=== PATIENT | female | born 1985 | race Caucasian/White ===

== ENCOUNTER → 2018-07-16 15:58 | Outpatient (CLI) | payer OTHER, MEDICAID, SELFPAY ==
[2018-07-16 16:37] LABS: Add Manual Diff / Slide Review NO; Basophils Percent Auto 0.5 % (0-2); Eosinophils Percent Auto 1.4 % (2-4); Hematocrit 40.4 % (36-46); Hemoglobin 13.6 g/dL (12.0-16.0); Lymphocytes Percent Auto 20.7 % (25-40); Mean Corpuscular HGB Conc 33.8 % (30-36); Mean Corpuscular Hemoglobin 31.7 PG (26-34); Mean Corpuscular Volume 93.9 fL (80-100); Monocytes Percent Auto 7.2 % (3-14); Neutrophils Absolute Auto 8900 /uL (1500-7000); Neutrophils Percent Auto 70.2 % (50-75); Platelet Count 230 X10^3/uL (150-400); Red Cell Distribution Width 12.6 % (11.6-14.8); White Blood Cell Count 12.7 X10^3/uL (4.5-11.0)
== END ==
PROVIDERS: Visit Provider Specialist
DX: Z01.818 Encounter for other preprocedural examination (principal)
CPT/HCPCS: 36415; 85025

== ENCOUNTER → 2018-08-20 12:44 | Outpatient (CLI) | payer OTHER, MEDICAID, SELFPAY ==
--- NOTE | 2018-08-20 12:51 | DI.US.S_ITS ---
PROCEDURE: US PELVIC COMPLETE INDICATIONS: PAIN; DISPARUNIA TECHNIQUE: Real-time scanning was performed of the pelvic organs, with image documentation. Additional endovaginal scanning was necessary due to incomplete visualization of the adnexal and endometrial structures by transabdominal scanning. COMPARISON: None. FINDINGS: Transabdominal scanning: Limited scanning through the kidneys shows no hydronephrosis. No pathologic free abdominal or pelvic fluid. Endovaginal scanning: Uterus: Uterus is normal in size at 4.7 x 5.8 x 8.5 cm. the uterus is anteverted The endometrium measures 4.3 mm in combined thickness. Note is made of a myometrial 0.8 x 1.2 x 1.4 cm cyst, subserosal, seen at the superior fundal portion of the anteverted myometrium just to the left of midline. Ovaries: The right ovary measures 3.0 x 1.8 x 2.7 cm and the left measures 2.1 x 2.5 x 3.8 cm IMPRESSION: No endometrial mass is identified. No ovarian cystic or solid mass is found. Anteverted uterus. A subserosal myometrial simple appearing cyst is incidentally noted measuring up to 1.4 cm in maximal dimension (superior fundal portion of the myometrium, just to the left of midline). Dictated by: Christoph Hightower M.D. on 08/20/2018 at 14:51 Approved by: Christoph Hightower M.D. on 08/20/2018 at 15:05
== END ==
PROVIDERS: PCP Nurse Practitioner; Visit Provider Specialist
DX: R10.2 Pelvic and perineal pain (principal); N94.10 Unspecified dyspareunia; N85.4 Malposition of uterus; N85.8 Other specified noninflammatory disorders of uterus
CPT/HCPCS: 76830; 76856

== ENCOUNTER → 2018-10-16 16:33 | Outpatient (CLI) | payer OTHER, MEDICAID, SELFPAY ==
[2018-10-16 18:00] LABS: Add Manual Diff / Slide Review NO; Basophils Absolute Auto 0 /uL (0-100); Basophils Percent Auto 0.2 % (0-2); Eosinophils Absolute Auto 100 /uL (0-450); Eosinophils Percent Auto 0.7 % (2-4); Hematocrit 42.8 % (36-46); Hemoglobin 14.1 g/dL (12.0-16.0); Lymphocytes Absolute Auto 2600 /uL (1100-4500); Lymphocytes Percent Auto 19.4 % (25-40); Mean Corpuscular HGB Conc 32.9 % (30-36); Mean Corpuscular Hemoglobin 30.9 PG (26-34); Mean Corpuscular Volume 93.8 fL (80-100); Monocytes Absolute Auto 900 /uL (0-900); Monocytes Percent Auto 6.5 % (3-14); Neutrophils Absolute Auto 9800 /uL (1500-7000); Neutrophils Percent Auto 73.2 % (50-75); Platelet Count 260 X10^3/uL (150-400); Red Blood Cell Count 4.56 X10^6/uL (4.0-5.2); White Blood Cell Count 13.4 X10^3/uL (4.5-11.0)
== END ==
PROVIDERS: PCP Nurse Practitioner; Visit Provider Specialist
DX: N92.1 Excessive and frequent menstruation with irregular cycle (principal)
CPT/HCPCS: 36415; 85025

== ENCOUNTER 2018-10-29 05:25 | Day surgery (SDC) | payer OTHER, MEDICAID, SELFPAY ==
[2018-10-18 08:19] VITALS: BMI 34.5
[2018-10-29] VITALS (21 sets, daily range): BP systolic 85–122; BP diastolic 46–81; PULSE 73–102; RESP 11–20; TEMP 36.2–37.3; O2SAT 90–100; BMI 34.2
--- NOTE | 2018-10-29 | PATH_ITS ---
[facility] Accession Number: [id number] . 01 Material submitted: . UTERUS AND CERVIX . 02 Diagnosis: Uterus With Cervix (Clinical Prolapse): Minimally proliferative endometrium, negative for atypia. [facility]/10/31/2018 . 02 Electronically signed: . Nish Fuentes MD, Pathologist NPI- [id number] . 01 Gross description: . Received in formalin, labeled uterus + cervix, is a uterus (91 grams, 3.8 cm AP, 10.1 cm SI, 4.2 cm ML). The ovaries and fallopian tubes are absent. The cervix (1.4 cm AP, 2.3 cm ML) has a vaginal cuff (up to 1.5 cm in depth), transverse os, and patent endocervical canal. The endometrium (average thickness-less than 0.1 cm) is malloy, smooth and flat. The myometrium (thickness-1.8 cm) is merchant-malloy with a lacy focally whorled pattern. The serosa is merchant-malloy, dull and flat. Section code: (A1-A2) anterior cervix, bisected and submitted SI; (A3-A4) posterior cervix, bisected and submitted SI; (A5, A6) anterior endomyometrium; (A7, A8) posterior endomyometrium. ([id number]) /MRV . 02 Pathologist provided ICD-10: N81.4 . 02 CPT . 194799 Performed at: 01 [facility] [address] [facility], [place], [place] [id number] MD David Joy MD Phone: [phone] Performed at: 02 [facility] [place] [address] [place] [id number] MD Nurys [place] MD Phone: [phone]
[2018-10-29] MEDS: LACTATED RINGERS 1,000 ML 100 ML IV ×4 (07:13→21:51)
[2018-10-29] MEDS: MIDAZOLAM 2 MG/2 ML VIAL IV (07:40)
--- NOTE | 2018-10-29 07:48 | PM.PREOP ---
Pre-operative Note Interval Note History & Physical reviewed/Exam performed by Physician: Yes Changes to H&P: No H&P completed within 30 days and has changed as indicated here:: see 10/16/18 out pt note
[2018-10-29] MEDS: CEFAZOLIN 2 GM/100 ML FROZ.PIGGY IV (08:11)
--- NOTE | 2018-10-29 08:26 | SUR.OPER ---
Lithotomy on padded OR bed, head on pillow, arms secured on padded arm boards at <90 degrees abduction. Legs secured in padded yellow fins stirrups.
[2018-10-29] MEDS: BUPIVACAINE 0.5% W/ EPI (PF) VIAL 30 ML INJ (08:40)
--- NOTE | 2018-10-29 10:14 | PM.GYNOP.1 ---
Operative Date/Time/Diagnoses Date of procedure: 10/29/18 Time of procedure: 10:15 Pre-op diagnosis: Dysmenorrhea, menorrhagia, symptomatic cystocele Post-op diagnosis: same Procedure: Procedures Operation Date: 08/03/18 13:45 <No data on this case meets the specified criteria> Operation Date: 10/29/18 07:45 Actual Procedures Side Surgeon p Vaginal Hysterectomy Not Applicable Tamara Salazar MD s Colporrhaphy Anterior Colporrhaphy Not Applicable Tamara Salazar MD Indications: Dysmenorrhea, menorrhagia, symptomatic cystocele Surgeon: Tamara Salazar It Support Technician: Christin Lopez Anesthesia Type: General Operative Notes Findings: Adhesions of the uterus to the anterior abdominal wall. Cystocele that prolapsed 1 cm from the hymen. Normal ovaries. Closure Type: primary Specimen(s): uterus Applied: catheter (Mcbride) Estimated blood loss (mL): 100 Blood products transfused: none Procedure in detail: Patient was brought to the operating room where she underwent general anesthesia. [facility] and prepped and draped in usual sterile fashion. Warming was in place. A Mcbride catheter was placed. She had pulsatile stockings in place and functional. Antibiotics were in prior to beginning of the case. A check system was reviewed with the staff in the room prior to beginning of the case. A posterior colpotomy incision was made and the peritoneum sutured to the posterior vaginal wall with 0 Vicryl suture which was used throughout the case unless otherwise indicated. The uterosacral ligaments were clamped cut and ligated. The cervix was injected with small amount of dilute 0.5 Marcaine with epinephrine. The cervix was circumscribed with the scalpel. The bladder was pushed superiorly. Sharp and blunt dissection continuing to push the bladder away from the cervix. Sequential bites were taken up the broad ligament. And anterior colpotomy incision was made and the bladder held away from the uterus. The utero-ovarian ligaments were clamped cut and ligated. The cornua was clamped cut and ligated allowing removal of the entire uterus and cervix intact. The right ovary was clearly visualized the left ovary was palpated as normal. adequate hemostasis was noted. the area at of the cystocele was injected with the dilute solution of Marcaine with epinephrine. An incision was made in the vaginal tissue over the cystocele. Dissection was undertaken laterally. Plicating sutures of 0 Vicryl suture were taken over the cystocele. Excess vaginal tissue was removed scalpel. The anterior vaginal incision was repaired with 2 0 Vicryl suture. The vaginal cuff was closed with 0 Vicryl suture in [id number] sutures. The vagina was packed and the Mcbride catheter left in place. Counts of instruments and sponges were correct. The patient went to recovery room in good condition. Complications: none Post-operative Condition: stable Disposition: Acute Care Plan for aftercare: Routine post hysterectomy
[2018-10-29] MEDS: fentaNYL 100 MCG/2 ML INJ 50 MCG IV (10:18)
[2018-10-29] MEDS: fentaNYL 100 MCG/2 ML INJ 25 MCG IV (10:31)
[2018-10-29] MEDS: ONDANSETRON 4 MG/2 ML INJ IV ×2 (12:14→18:20)
[2018-10-29 12:15] LABS: Alanine Aminotransferase 64 IU/L (9-52)
[2018-10-29] MEDS: KETOROLAC 30 MG/ML VIAL IV ×2 (12:25→20:58)
[2018-10-29 12:48] LABS: Hepatitis B Surface Antigen NEGATIVE s/c (NEGATIVE)
[2018-10-29 13:07] LABS: HIV 1 and 2 Antibody NEGATIVE (NEGATIVE); Hep C Virus Ab w/Reflex Quant NEGATIVE s/c (NEGATIVE)
--- NOTE | 2018-10-29 13:15 | PC.NURSE ---
Patient admitted from PACU to room 209, alert and oriented but sleepy. VSS, weaned from 02 back to room air now 95%. IV fluids started as ordered. Diet as tolerated. IV ketorolac given for pain as ordered. Mcbride in place with nuzhat pad dry without bleeding noted. Call light within reach, continue to monitor.
[2018-10-29] MEDS: OXYCODONE IR 10 MG TABLET PO (14:24)
[2018-10-29] MEDS: HYDROMORPHONE PCA (6MG/30ML) 6 MG/30 ML PCA.VIAL IV (17:32)
--- NOTE | 2018-10-29 17:53 | PC.NURSE ---
Addendum entered by Rosa Cabrera R.N. 10/29/18 22:25: Pt had issues w/nausea and emesis this eevening. notified w/ additional antinausea med ordered. IV continues a per orders. Call light w/in reach. Pt calls appropriately for assit. Continue w/plan of care. Original Note: Pt resting quietly at beginning of shift. Alert/oriented. Lungs clear, SpO2 98% RA Abdomen soft, tender Vaginal packing in place. Pt states discomfort is /10. [employer] FOUNTAIN MANAGER set up w/ 0.2/05/05 as per orders. Mcbride cath patent clear urine. Call light w/in reach, bed alarm on for pt safety.
[2018-10-30] MEDS: ONDANSETRON 4 MG/2 ML INJ IV ×3 (00:09→09:00)
--- NOTE | 2018-10-30 00:23 | PC.NURSE ---
Addendum entered by Erin Ziegler R.N. 10/30/18 06:12: Continues to be nauseated and now having dry heaves so medicated with Reglan. Original Note: Addendum entered by Erin Ziegler R.N. 10/30/18 04:52: Slept for several hours after having 400cc emesis shortly after receiving Zofran earlier but now again starting to feel nauseated when I sat up; medicated with Zofran. States pain is 4-5/10 but being managed with use of PATIENT CARE NURSING ASSISTANT; provided warm blanket for additional comfort. Original Note: Patient is alert and oriented. Breath sounds CTA with RA sat of 98%. HRR. Complains of nausea after taking few bites/sips but without emesis; medicated with Zofran. BT present and is passing flatus. Indwelling catheter is patent with clear yellow urine in bag. No drainage on nuzhat pad. Able to move self in bed. States was up earlier with 1 assist but felt weak and dizzy; denies dizziness lying in bed. Bilateral SCD's on. States still 2-3/10 cramping abdominal pain but managed well with use of PATIENT CARE NURSING ASSISTANT. Spouse, Pio, rooming in. Fall risk score is moderate; bed alarm is activated.
[2018-10-30 04:48] VITALS: BP 113/64; PULSE 75; RESP 16; TEMP 36.5; O2SAT 98
[2018-10-30] MEDS: METOCLOPRAMIDE 10 MG/2 ML INJ IV (06:02)
[2018-10-30 06:09] LABS: Add Manual Diff / Slide Review NO; Basophils Absolute Auto 0 /uL (0-100); Basophils Percent Auto 0.2 % (0-2); Eosinophils Absolute Auto 0 /uL (0-450); Hematocrit 36.8 % (36-46); Hemoglobin 12.7 g/dL (12.0-16.0); Lymphocytes Absolute Auto 2000 /uL (1100-4500); Lymphocytes Percent Auto 11.2 % (25-40); Mean Corpuscular HGB Conc 34.4 % (30-36); Mean Corpuscular Hemoglobin 31.9 PG (26-34); Mean Corpuscular Volume 92.8 fL (80-100); Monocytes Absolute Auto 1000 /uL (0-900); Monocytes Percent Auto 5.8 % (3-14); Neutrophils Absolute Auto 14600 /uL (1500-7000); Neutrophils Percent Auto 82.8 % (50-75); Platelet Count 233 X10^3/uL (150-400); Red Blood Cell Count 3.97 X10^6/uL (4.0-5.2); Red Cell Distribution Width 12.4 % (11.6-14.8); White Blood Cell Count 17.6 X10^3/uL (4.5-11.0)
[2018-10-30] MEDS: LACTATED RINGERS 1,000 ML 100 ML IV (06:12)
[2018-10-30 07:50] VITALS: BP 103/75; PULSE 80; RESP 18; TEMP 36.6; O2SAT 98
--- NOTE | 2018-10-30 10:13 | PC.NURSE ---
Day shift: Pt gave good effort to eat breakfast this AM but nausea returned. Gave IV Zofran and ltook food away. Pt did not have any emesis and did keep a cracker down. She has been sleeping. The MD is here now. Plan is to remove packing and Mcbride. Will continue to monitor.
--- NOTE | 2018-10-30 10:30 | P.PN_ITS ---
Subjective Date Patient Seen: 10/30/18 Time Patient Seen: 10:25 Interval history: Postoperative total vaginal hysterectomy anterior repair. Patient initially had trouble with pain control. She has had nausea and vomiting. She appears to be a little better at this point. Exam Vital Signs (past 8 hours): - 10/30/18 04:48 10/30/18 07:50 Temperature 97.7 F 97.9 F Pulse Rate 75 80 Respiratory Rate 16 18 Blood Pressure 113/64 103/75 Pulse Oximetry 98 98 Oxygen Delivery Method Room Air Oxygen Flow Rate 0 Narrative Exam Narrative: Abdomen is soft, nontender. Mcbride catheter and vaginal packing were removed. extremities without edema and nontender. Objective Labs Result Diagrams: 10/30/18 05:30 Labs: Laboratory Results - last 24 hr 10/29/18 10/29/18 10/30/18 11:15 11:15 05:30 WBC 17.6 H RBC 3.97 L Hgb 12.7 Hct 36.8 MCV 92.8 MCH 31.9 MCHC 34.4 RDW 12.4 Plt Count 233 Neut % (Auto) 82.8 H Lymph % (Auto) 11.2 L [place] % (Auto) 5.8 Eos % (Auto) 0.0 L Baso % (Auto) 0.2 Neut # (Auto) 95813 H Lymph # (Auto) 2000 [place] # (Auto) 1000 H Eos # (Auto) 0 Baso # (Auto) 0 ALT 64 H Hep Bs Antigen Negative Hepatitis C Antibody Negative HIV 1&2 Antibody Negative Assessment & Plan Post-op (1) S/P vaginal hysterectomy: Postoperative Procedures Operation Date: 08/03/18 13:45 <No data on this case meets the specified criteria> Operation Date: 10/29/18 07:45 Actual Procedures Side Surgeon p Vaginal Hysterectomy Not Applicable Tamara Salazar MD s Colporrhaphy Anterior Colporrhaphy Not Applicable Tamara Salazar MD Postoperative day: 1 Postoperative status: marginal pain control Postoperative plan: routine post-op care Postoperative plan narrative: Will try switching to oral pain medicine an oral Reglan. Patient will have a bladder trial. Evaluate for discharge later today if she is able to tolerate oral medications.
[2018-10-30] MEDS: KETOROLAC 30 MG/ML VIAL IV (10:40)
--- NOTE | 2018-10-30 11:29 | PC.NURSE ---
Day shift: Pt OOB to BR to void but that did not happen. Pt did state that she past some flatus and it made the pain a little better. Pt did eat more of her breakfast and denies any nausea at this time. Pt also stated that she is in no hurry to d/c and she wants to make sure she can void prior to going home. Will continue to monitor.
[2018-10-30] MEDS: HYDROMORPHONE 4 MG TABLET PO (12:03)
[2018-10-30 13:30] VITALS: BP 133/76; PULSE 88; RESP 18; TEMP 36.8; O2SAT 98
--- NOTE | 2018-10-30 14:10 | PM.DS.1 ---
History of Present Illness Date Patient Seen: 10/30/18 Time Patient Seen: 14:10 Chief complaint: [id number] TVH/ANTERIOR REPAIR *OPB* Narrative: Postoperative vaginal hysterectomy a anterior repair Discharge Providers Discharge Date: 10/30/18 Primary care physician: SHANNAN Fletcher Discharge provider: Tamara Salazar MD Summary Discharge Diagnosis: Menorrhagia, dysmenorrhea, symptomatic cystocele Hospital Course: Patient underwent a total vaginal hysterectomy with anterior repair on 10/29/2018. Patient initially have problems with pain control and nausea but since has resolved. She was able to pass her bladder trial. She was discharged home Status at Discharge Cognitive/behavioral status at discharge: oriented Overall status at discharge: patient is progressing back to baseline Time Spent with Patient Less than 30 minutes Exam Vital Signs (past 8 hours): - 10/30/18 07:50 10/30/18 13:30 Temperature 97.9 F 98.2 F Pulse Rate 80 88 Respiratory Rate 18 18 Blood Pressure 103/75 133/76 Pulse Oximetry 98 98 Oxygen Delivery Method Room Air Oxygen Flow Rate 0 Narrative Exam Narrative: Abdomen is soft, nontender. Mild bleeding. Eextremities without tenderness. Objective Labs Result Diagrams: 10/30/18 05:30 Labs: Laboratory Results - last 24 hr 10/30/18 05:30 WBC 17.6 H RBC 3.97 L Hgb 12.7 Hct 36.8 MCV 92.8 MCH 31.9 MCHC 34.4 RDW 12.4 Plt Count 233 Neut % (Auto) 82.8 H Lymph % (Auto) 11.2 L [place] % (Auto) 5.8 Eos % (Auto) 0.0 L Baso % (Auto) 0.2 Neut # (Auto) 52289 H Lymph # (Auto) 2000 [place] # (Auto) 1000 H Eos # (Auto) 0 Baso # (Auto) 0 Discharge Plan Discharge Plan Patient Disposition: Home Discharge Med Rec/Prescriptions Prescriptions: New ibuprofen 600 mg Tablet 600 mg PO Q6HR PRN (Reason: As Needed For Fever/Mild Pain) Qty: 30 RF: 0 hydromorphone 4 mg Tablet 4 mg PO Q4HR PRN (Reason: Pain, Severe (7-10)) Qty: 40 RF: 0 metoclopramide HCl 10 mg Tablet 10 mg PO Q4HR PRN (Reason: Nausea And Vomiting) Qty: 20 RF: 0 docusate sodium [Dulcolax Stool Softener (dss)] 100 mg capsule 100 mg PO BID Qty: 30 RF: 0 Continued clonazepam 1 mg tablet 1 mg PO BID RF: 0 fluticasone propionate [Flonase Allergy Relief] 50 mcg/actuation spray,suspension 1 spray NASAL DAILY RF: 0 prazosin 2 mg capsule 2 mg PO BID RF: 0 Singulair 10 mg 10 mg DAILY RF: 0 loratadine 10 mg 10 mg DAILY RF: 0 Follow up/Referrals: Tamara Salazar MD [Physician] - 2 Weeks Lisbet Shoemaker ARNP [Primary Care Provider] - Discharge Orders: Discharge (Order); Ordered 10/30/18 Ordered By: Tamara Salazar Provider Discharge Instructions Diet: Regular Activity: Nothing in vagina for 6 weeks, do not lift over 20 lb for 6 weeks Skin/Wound/Dressing Care Report to your healthcare provider any signs of infection, such as:: chills, fever and increased pain Visit Report/Discharge Packet Instructions: DI for Hysterectomy, Stool Softeners, Hydromorphone, Ibuprofen, Metoclopramide Stand Alone Forms: Surgery Discharge Discharge Data Primary Care Provider: Lisbet Shoemaker Attending Provider: Tamara Salazar
--- NOTE | 2018-10-30 14:13 | P.DS_ITS ---
History of Present Illness Date Patient Seen: 10/30/18 Time Patient Seen: 14:10 Chief complaint: [id number] TVH/ANTERIOR REPAIR *OPB* Narrative: Postoperative vaginal hysterectomy a anterior repair Discharge Providers Discharge Date: 10/30/18 Primary care physician: SHANNAN Fletcher Discharge provider: Tamara Salazar MD Summary Discharge Diagnosis: Menorrhagia, dysmenorrhea, symptomatic cystocele Hospital Course: Patient underwent a total vaginal hysterectomy with anterior repair on 10/29/2018. Patient initially have problems with pain control and nausea but since has resolved. She was able to pass her bladder trial. She was discharged home Status at Discharge Cognitive/behavioral status at discharge: oriented Overall status at discharge: patient is progressing back to baseline Time Spent with Patient Less than 30 minutes Exam Vital Signs (past 8 hours): - 10/30/18 07:50 10/30/18 13:30 Temperature 97.9 F 98.2 F Pulse Rate 80 88 Respiratory Rate 18 18 Blood Pressure 103/75 133/76 Pulse Oximetry 98 98 Oxygen Delivery Method Room Air Oxygen Flow Rate 0 Narrative Exam Narrative: Abdomen is soft, nontender. Mild bleeding. Eextremities without tenderness. Objective Labs Result Diagrams: 10/30/18 05:30 Labs: Laboratory Results - last 24 hr 10/30/18 05:30 WBC 17.6 H RBC 3.97 L Hgb 12.7 Hct 36.8 MCV 92.8 MCH 31.9 MCHC 34.4 RDW 12.4 Plt Count 233 Neut % (Auto) 82.8 H Lymph % (Auto) 11.2 L [place] % (Auto) 5.8 Eos % (Auto) 0.0 L Baso % (Auto) 0.2 Neut # (Auto) 46002 H Lymph # (Auto) 2000 [place] # (Auto) 1000 H Eos # (Auto) 0 Baso # (Auto) 0 Discharge Plan Discharge Plan Patient Disposition: Home Discharge Med Rec/Prescriptions Prescriptions: New ibuprofen 600 mg Tablet 600 mg PO Q6HR PRN (Reason: As Needed For Fever/Mild Pain) Qty: 30 RF: 0 hydromorphone 4 mg Tablet 4 mg PO Q4HR PRN (Reason: Pain, Severe (7-10)) Qty: 40 RF: 0 metoclopramide HCl 10 mg Tablet 10 mg PO Q4HR PRN (Reason: Nausea And Vomiting) Qty: 20 RF: 0 docusate sodium [Dulcolax Stool Softener (dss)] 100 mg capsule 100 mg PO BID Qty: 30 RF: 0 Continued clonazepam 1 mg tablet 1 mg PO BID RF: 0 fluticasone propionate [Flonase Allergy Relief] 50 mcg/actuation spray,[place] pension 1 spray NASAL DAILY RF: 0 prazosin 2 mg capsule 2 mg PO BID RF: 0 Singulair 10 mg 10 mg DAILY RF: 0 loratadine 10 mg 10 mg DAILY RF: 0 Follow up/Referrals: Tamara Salazar MD [Physician] - 2 Weeks Lisbet Shoemaker ARNP [Primary Care Provider] - Discharge Orders: Discharge (Order); Ordered 10/30/18 Ordered By: Tamara Salazar Provider Discharge Instructions Diet: Regular Activity: Nothing in vagina for 6 weeks, do not lift over 20 lb for 6 weeks Skin/Wound/Dressing Care Report to your healthcare provider any signs of infection, such as:: chills, fever and increased pain Visit Report/Discharge Packet Instructions: DI for Hysterectomy, Stool Softeners, Hydromorphone, Ibuprofen, Metoclopramide Stand Alone Forms: Surgery Discharge Discharge Data Primary Care Provider: Lisbet Shoemaker Attending Provider: Tamara Salazar
--- NOTE | 2018-10-30 14:38 | PC.NURSE ---
Day shift: Left unit at approx 1440. Paperwork signed and all questions answered. HAs MD sarah and all personal belongings. Went in WC with this investment underwriter to private car that her will drive them home to [facility].
--- NOTE | 2018-10-30 14:44 | CM.DPC ---
Discharge Planning/Care Management DCP: assessment: case received and discussed in Team Rounds. Pt is a 33 year old female who admitted yesterday to care of Dr. Salazar for a planned gynecological surgery. Confirmed by [place] [facility] [place] [facility] Medicaid. Dr. Salazar was here this afternoon and did ok pt for d/c to home. Went to room to check in..NICHOLAS Hurtado confirms that pt did d/c to home with her about 15 minutes ago. No concerns re the d/c were noted by the care team members. CM Discharge Assessment Start: 10/30/18 14:43 Freq: Status: Active Protocol: Document 10/30/18 14:43 ITV (Rec: 10/30/18 14:44 ITV [id number]) Discharge Planning Assessment Advance Directives? No History Provided By Medical Record Household Members spouse Review Status In Process Next Review Type Continued Stay Review Pre-Anesthesia Assessment Start: 10/18/18 08:19 Freq: Status: Complete Protocol: Document 10/18/18 08:19 CAB (Rec: 10/18/18 08:29 CAB [id number]) Pre-Anesthesia Assessment Patient Information Reviewed Via Chart Review Primary Language [place] Coal Picker Required No Height 156.21 cm Weight 84.368 kg Body Mass Index (BMI) 34.5 Hx Anesthesia Reactions Unknown, no prior surgical history identified Anesthesia Review Requested No Law Firm Consultant No Smoking Status Current some day smoker Pain Present Pain Reported History of Falling (Recent or History of No ) Patient is completely paralyzed or No completely immobile Mental Status Oriented to own ability Is patient on oxygen? No Does patient have FITZGERALD/SOB No Hx Sleep Apnea No Currently Taking a Beta [place] No Hx Chest Pain No Hx SOB No Hx Syncope or Dizziness No Anti-Coagulant Therapy No Has a Well Head Pumper No Cardiac Testing No Hx Pacemaker/ICD No Pacemaker Rep Required? No Cardiac Clearance Received Not Applicable Bladder Pattern Incontinent, Stress Urinary Catheter Present No Hx Urinary Self Catheterization No Diabetes No Patient No Lactating No Hx Drug Resistant Organism No Presence of External or Internal Medical No Devices Patient Discharge Plan Description Return Home
[2018-10-31 14:04] LABS: Hepatitis B Surf Ab Qualitativ Reactive (Nonreactive)
== END 2018-10-30 14:40 | disposition home or self-care (01) ==
LOC: OR 05:32 → AC 05:35
PROVIDERS: PCP Nurse Practitioner; Visit Provider Specialist
PROC: (CPT 58260; principal; 2018-10-29 07:45)
PROC: (CPT 58260; 2018-10-29 07:45)
DX: N92.0 Excessive and frequent menstruation with regular cycle (principal); N94.6 Dysmenorrhea, unspecified; N81.11 Cystocele, midline; F17.210 Nicotine dependence, cigarettes, uncomplicated; N39.3 Stress incontinence (female) (male)
CPT/HCPCS: 58260; 57240; 36415; 85025; J0690; J1100; J1885; J2250; J2405; J2704; J2765; J3010

== ENCOUNTER → 2018-12-13 16:25 | Outpatient (CLI) | payer OTHER, MEDICAID, SELFPAY ==
[2018-11-21 11:25] VITALS: BMI 34.2
== END ==
PROVIDERS: PCP Nurse Practitioner; Visit Provider Specialist
DX: B99.9 Unspecified infectious disease (principal); Z90.710 Acquired absence of both cervix and uterus